=== PATIENT | male | born 1955 | race Caucasian/White ===

== ENCOUNTER 2021-10-03 07:02 | Day surgery (SDC) | payer MEDICARE, SELFPAY ==
[2021-09-29 10:06] VITALS: BMI 23.7
--- NOTE | 2021-10-02 09:48 | HO.ANESPROP2 ---
Documented by User: Carin Frausto NP 10/02/21 09:48 HPI - Anesthesia Eval Consult details Narrative: 66yo M for Colonoscopy [facility] Past Medical History Medical History (Updated 09/29/21 @ 13:38 by Kenisha Mcdaniel RN) Anxiety COVID-19 vaccine series completed Heart murmur HTN (hypertension) Surgical History Surgical History (Updated 09/26/21 @ 15:12 by Kenisha Mcdaniel RN) H/O colonoscopy Hx of appendectomy Social History Social History Are you a primary healthcare corporate account director to a significant other at home: No Do you presently have visiting nurse or other home services: No Patient Tobacco Use Status: Never used Tobacco Use of substances other than those prescribed or required for medical reasons: No Have you been hit, kicked, punched, or otherwise hurt by someone within the past year? If so, by whom?: No Are you DNR?: No Advance Directives: Yes Advance Directives Information Provided: Yes Advance Directives on File: Yes Advance Directives Date on File: 09/29/16 Recently lost weight without trying: No Eating poorly because of decreased appetite: No Nutrition Risks: No Nutritional Risk Poor oral hygiene: No Meds Allergies Allergy/AdvReac Type Severity Reaction Status Date / Time No Known Allergies Allergy Verified 10/03/21 07:06 [No Known Allergies*] Home Medications Medication Instructions Recorded Confirmed Last Taken Type alprazolam 1 mg tablet 1 tab PO DAILY PRN 09/26/21 09/26/21 Unknown History amlodipine 5 mg tablet 1 tab PO DAILY 09/26/21 09/26/21 10/03/21 History cyanocobalamin (vitamin B-12) 100 100 mcg PO DAILY 09/26/21 09/26/21 Unknown History mcg tablet (Vitamin B-12) fluticasone propionate 50 1 spray INTRANASAL DAILY 09/26/21 09/26/21 Unknown History mcg/actuation nasal spray,suspension multivitamin 1 tab PO DAILY 09/26/21 09/26/21 Unknown History Exam Exam Date and Time: October 02, 2021 0948 Height,Weight and Vital Signs: Height 6 ft Weight 79.379 kg Assessment and Plan Assessment Anesthesia Assessment: Chart Reviewed Documented by User: King Hurtado MD 10/03/21 08:14 [facility] Past Medical History Medical History (Updated 09/29/21 @ 13:38 by Kenisha Mcdaniel RN) Anxiety COVID-19 vaccine series completed Heart murmur HTN (hypertension) Family History Family history of problems with anesthesia: No Surgical History Surgical History (Updated 09/26/21 @ 15:12 by Kenisha Mcdaniel RN) H/O colonoscopy Hx of appendectomy History of Problems with Anesthesia: No Social History Social History Are you a primary healthcare corporate account director to a significant other at home: No Do you presently have visiting nurse or other home services: No Patient Tobacco Use Status: Never used Tobacco Use of substances other than those prescribed or required for medical reasons: No Have you been hit, kicked, punched, or otherwise hurt by someone within the past year? If so, by whom?: No Are you DNR?: No Advance Directives: Yes Advance Directives Information Provided: Yes Advance Directives on File: Yes Advance Directives Date on File: 09/29/16 Recently lost weight without trying: No Eating poorly because of decreased appetite: No Nutrition Risks: No Nutritional Risk Poor oral hygiene: No Meds Allergies Allergy/AdvReac Type Severity Reaction Status Date / Time No Known Allergies Allergy Verified 10/03/21 07:06 [No Known Allergies*] Home Medications Medication Instructions Recorded Confirmed Last Taken Type alprazolam 1 mg tablet 1 tab PO DAILY PRN 09/26/21 09/26/21 Unknown History amlodipine 5 mg tablet 1 tab PO DAILY 09/26/21 09/26/21 10/03/21 History cyanocobalamin (vitamin B-12) 100 100 mcg PO DAILY 09/26/21 09/26/21 Unknown History mcg tablet (Vitamin B-12) fluticasone propionate 50 1 spray INTRANASAL DAILY 09/26/21 09/26/21 Unknown History mcg/actuation nasal spray,suspension multivitamin 1 tab PO DAILY 09/26/21 09/26/21 Unknown History Exam Airway Mallampati Class: II TM Dist: >3cm Neck ROM: Full Assessment and Plan Assessment Anesthesia Assessment: Anesthesia Plan Discussed Final Anesthetic Review Family History of Problems with Anesthesia: No History of Problems with Anesthesia: No NPO: Yes ASA Class: II Final Preanesthetic Review: No Changes in Pt Med Stat, Meds/Allgs Chart Reviewed, Consent Obtained/Reviewed and Anes Risks/Benef Reviewed Patient Risk: Low Procedure Risk: Low Anesthetic Plan Anesthetic Plan: MAC: Disposition: Standard PACU
[2021-10-03 07:22] VITALS: BP 146/90; PULSE 87; RESP 16; TEMP 36.8; O2SAT 95
[2021-10-03] MEDS: Lactated Ringers 1,000 ML 100 ML IVCONT (07:30)
--- NOTE | 2021-10-03 08:22 | MHC.SHP ---
Pre-Procedural Eval Section A Date of Service: 10/03/21 Section B Chief Complaint: screening Details of Present Illness: screening Relevant Family History (Specify if Yes): No Relevant Social History: None Present Medications: None Medical History: No relevant PMH History of Previous Operations: No relevant previous surgery Allergies: Allergies Allergy/AdvReac Type Severity Reaction Status Date / Time No Known Allergies Allergy Verified 10/03/21 07:06 [No Known Allergies*] Review of Systems Sugical H&P ROS: Negative: Constitution, Cardiovascular, Respiratory, Neurological, Psychiatric, Hem-Onc, Allergic/Immunologic, Gastrointestinal, Genitourinary, Musculoskeletal, Integumentary, Endocrine and Eyes/Ears/Nose/Throat Exam Surgical H&P Exam: Normal: HEENT, Normal: Heart, Normal: Lungs, Normal: Extremities, Normal: Abdomen, Normal: Skin and Normal: Neurological Plan Diagnosis/Plan: Unchanged I have reviewed the history and physical and performed a pertinent physical examination on my patient. No changes have occurred unless specified.
[2021-10-03 09:05] VITALS: BP 116/66; PULSE 75; RESP 20; TEMP 36.4; O2SAT 97
--- NOTE | 2021-10-03 09:09 | PM.OP ---
Brief Operative Note Date of Service: 10/03/21 Pre-op diagnosis: screening Post-op diagnosis: same (colon polyps) Procedure: colonoscopy Surgeon: Koid Landa Anesthesia: MAC Was an Shovel Operator used for this Procedure?: No Estimated blood loss (mL): 2 Pathology: other (polyps cecum and 20 cm) Condition: stable Disposition: PACU
[2021-10-03 09:20] VITALS: BP 107/78; PULSE 74; RESP 16; TEMP 36.4; O2SAT 96
--- NOTE | 2021-10-03 15:26 | OP_ITS ---
SURGEON: Kodi Landa MD INDICATIONS: Colon cancer screening. PREOPERATIVE DIAGNOSIS: POSTOPERATIVE DIAGNOSIS: PROCEDURE PERFORMED: Colonoscopy to the cecum with biopsy and snare polypectomy. ESTIMATED BLOOD LOSS: COMPLICATIONS: ANESTHESIA: ASSISTANTS: SPECIMENS: MEDICATIONS: Monitored anesthesia care. DESCRIPTION OF PROCEDURE: History and physical performed. The risks and benefits of the procedure were explained to the patient. Informed consent was obtained. The patient was placed in the left lateral decubitus position. A digital rectal exam was performed and was found to be normal. The Olympus pediatric video colonoscope was introduced into the rectum and advanced to the cecum without difficulty. The cecum was identified by transillumination, palpation, and identification of ileocecal valve. Examination was performed. The scope was removed. He tolerated the procedure well and was returned to recovery unit in stable condition. FINDINGS: The terminal ileum was not examined. The visualized colonic mucosa was within normal limits without evidence of masses or ulcers. Two polyps were identified. The 1st was located in the cecum at the superior aspect of the ileocecal valve measuring less than 5 mm. This was removed with biopsy forceps. The 2nd was located at 20 cm measuring approximately 8 mm, this was removed with a snare and recovered via suction. No other polyps were identified. Retroflexed examination did show moderate-sized internal hemorrhoids. The quality of the prep was good. IMPRESSION: Colon polyps. RECOMMENDATION: Follow up the biopsy results. MD ADRIENNE Owens/KASSANDRA / [id number]
== END 2021-10-03 09:53 | disposition home or self-care (01) ==
PROVIDERS: PCP Internal Medicine; Visit Provider Internal Medicine Gastroenterology
PROC: 0DJD8ZZ Inspection of Lower Intestinal Tract, Via Natural or Artificial Opening Endoscopic (ICD-10-PCS; CPT 45378; principal; 2021-10-03 08:20)
DX: Z12.11 Encounter for screening for malignant neoplasm of colon (principal); D12.0 Benign neoplasm of cecum; K63.5 Polyp of colon; K57.30 Diverticulosis of large intestine without perforation or abscess without bleeding; K64.8 Other hemorrhoids; I10 Essential (primary) hypertension; Z79.82 Long term (current) use of aspirin; Z79.899 Other long term (current) drug therapy
CPT/HCPCS: 45385; 45380; 88305